=== PATIENT | female | born 1940 | race African-American/Black ===

== ENCOUNTER 2017-03-21 13:40 | Emergency (ER) | payer MEDICARE ==
[~2017-03-21] VITALS: Ht 170.2 cm; Wt 103.0 kg
[~2017-03-21 13:40] MED LIST: (None)10 MG OR; ALENDRONATE70 MG PO; AMOXICILLIN/CL875 MG PO; AMOXICILLIN500 MG PO; ASPIRIN EC81 MG PO; ASPIRIN LOW DOS81 M2 PO; ATENOLOL100 MG OR; ATORVASTATIN CA20 MG PO; BENAZEPRIL20 M1 PO; CALCIUM500 M5 PO; CELEBREX200 MG PO; CEPHALEXIN500 MG PO; CLONIDINE0.2 MG OR; DARVOCET N-100100 - OR; DURAGESIC50 MCG/H1 TD; ENALAPRIL10 MG PO; FLEXERIL10 MG PO; FLEXERIL5 M1; FLUOXETINE10 M2 PO; GABAPENTIN300 MG PO; HYDROCHLOROTH12.5 MG PO; HYDROCHLOROTHIA50 MG PO; HYDROCO/APAP1 T10 PO; LASIX 40 MG40 MG/TAB PO; LIPITOR10 M1 PO; LORTAB 5 OR; MAXZIDE-2537.5 MG/TA PO; MEDDOSEPAK PO; MEDROL4 M1 PO; MELOXICAM7.5 MG PO; METFORMIN500 M1 PO; METOPROL TAR50 MG PO; METOPROLOL TART50 MG PO; MOBIC15 MG PO; MULTI VIT PO; NABUMETONE500 MG PO; NEURONTIN100 MG PO; OXYBUTYNIN5 M1 PO; PEPCID20 MG PO; POT CHLORIDE10 ME5 PO; PRAVACHOL20 MG PO; PREDNISONE20 MG PO; TYLENOL # 31 TA1 PO; TYLENOL # 31 TAB PO; ULTRAM50 M1 PO; VITAMIN B-12500 MCG PO; XANAX XR0.5 MG PO; XANAX0.5 MG PO; ZOLOFT50 MG OR; ZPAK PO
[2017-03-21 15:02] LABS: INFLUENZA A NONE DETECTED (NONE DETECT); INFLUENZA B POSITIVE (NONE DETECT)
[2017-03-21] MEDS ORDERED: TAM75CAP PO (15:04)
[2017-03-21 15:15] VITALS: BP 163/83
== END 2017-03-21 15:15 | disposition home or self-care (01) ==
LOC: ED 13:40
PROVIDERS: Family Medicine
DX: J11.1 Influenza due to unidentified influenza virus with other respiratory manifestations (principal); I10 Essential (primary) hypertension

== ENCOUNTER 2019-03-21 18:18 | Observation (INO) | payer MEDICARE, MEDICAID ==
[~2019-03-21] VITALS: Ht 170.2 cm; Wt 101.0 kg
[~2019-03-21 18:18] MED LIST changes: +ARNUITY EL50 MCG/ACT NAB; +ASPIRIN 81 LOW81 MG PO; +BUPROPION HCL300 MG PO; +CALCIUM 600+D3 PO; +CARDURA XL4 MG PO; +CLONIDINE HYDR0.1 M1 PO; +FUROSEMIDE20 MG PO; +HYDROCODONE/ACE1 TAB PO; +HYZAAR1 TA2 PO; +LIPITOR40 M1 PO; +NORCO1 TA1 PO; +REFRESH OPTIVE OU; +TAM75CAP PO
[2019-03-21 19:30] LABS: HEMATOCRIT 40.9 % (37.0-47.0); HEMOGLOBIN 13.1 g/dl (12.0-16.0); IMMATURE GRANULOCYTES 0.3 % (0.0-5.0); MEAN CORPUSCULAR HGB 29.8 pG CALC (26.0-32.0); NEUT# 4.97 thou/uL (2.00-7.15); RED BLOOD COUNT 4.4 mill/uL (4.20-5.60); RED CELL DISTRI WIDTH 14.5 % (11.5-15.5)
[2019-03-21 19:36] LABS: ALBUMIN 4.1 g/dL (3.2-5.0); ALKALINE PHOSPHATASE 119 u/l (38-126); AMYLASE 101 u/l (30-110); ANION GAP 15 (6-22 (CALC)); BILIRUBIN, TOTAL 1.5 mg/dL (0.0-1.4); BUN 19 mg/dL (8-23); BUN/CREATININE RATIO 15 (12-20 (CALC)); CARBON DIOXIDE 30 mmol/l (22-30); CHLORIDE 96 mmol/l (95-108); CREATININE 1.2 mg/dL (0.5-1.0); ETHYL ALCOHOL 0 mg/dl (0-30); GFR 44 ML/MIN (>=60 (CALC)); GFR FOR AFR.AMER. 53 ML/MIN (>=60 (CALC)); LIPASE 158 u/l (23-300); MAGNESIUM 1.7 mg/dL (1.6-2.3); POTASSIUM 3.6 mmol/l (3.5-5.1); SGOT/AST 27 u/l (9-36); SODIUM 137 mmol/l (137-146); TOTAL PROTEIN 8.3 g/dL (6.3-8.2)
[2019-03-21 19:45] LABS: PROTHROMBIN TIME 10.5 SECONDS (9.0-12.5)
[2019-03-21] MEDS ORDERED: ATENOLOL50 MG PO (21:56)
[2019-03-21] MEDS ORDERED: CYMBALTA60 MG PO (21:57)
[2019-03-21] MEDS ORDERED: PAROXETINE10 MG PO (21:58)
[2019-03-22] VITALS (18 sets, daily range): BP systolic 73–132; BP diastolic 48–76
[2019-03-22 00:42] LABS: COCAINE NEGATIVE (NEGATIVE); METHADONE NEGATIVE (NEGATIVE); TETRAHYDROCANNABIONOL NEGATIVE (NEGATIVE)
[2019-03-22 00:43] LABS: BARBITURATES NEGATIVE (NEGATIVE); OXCYCODONE NEGATIVE (NEGATIVE); TRICYLIC ANTIDEPRESSANTS NEGATIVE (NEGATIVE)
[2019-03-22 00:48] LABS: URINE BILIRUBIN - DIPSTICK NEGATIVE (NEGATIVE); URINE COLOR YELLOW; URINE GLUCOSE - DIPSTICK NEGATIVE (NEGATIVE); URINE KETONE NEGATIVE (NEGATIVE); URINE LEUK ESTERASE MODERATE (NEGATIVE); URINE NITRITE - DIPSTICK NEGATIVE (Negative); URINE PROTEIN - DIPSTICK NEGATIVE (NEG-TRACE); URINE SPECIFIC GRAVITY <=1.005; URINE UROBILINOGEN - DIPSTICK 0.2 E.U./dL (0.2)
[2019-03-22 00:50] LABS: URINE BLOOD DIPSTICK NEGATIVE (NEGATIVE)
[2019-03-22 00:53] LABS: URINE BACTERIA MANY hpf; URINE EPITHELIAL CELLS MODERATE EPI/hpf (0-FEW); URINE WBC 20-50 WBC/hpf (0-5)
[2019-03-22 00:54] LABS: URINE TRICHOMONAS FEW hpf
[2019-03-22 06:39] LABS: HEMOGLOBIN 12.8 g/dl (12.0-16.0); IMMATURE GRANULOCYTES 0.4 % (0.0-5.0); MEAN CELL VOLUME 93.5 fL CALC (80.0-100.0); MEAN CORPUSCULAR HGB 29.9 pG CALC (26.0-32.0); NEUT# 4.23 thou/uL (2.00-7.15); RED BLOOD COUNT 4.28 mill/uL (4.20-5.60); RED CELL DISTRI WIDTH 14.6 % (11.5-15.5)
[2019-03-22 07:00] LABS: ALBUMIN 3.9 g/dL (3.2-5.0); ALKALINE PHOSPHATASE 108 u/l (38-126); ANION GAP 13 (6-22 (CALC)); BILIRUBIN, TOTAL 1.7 mg/dL (0.0-1.4); BUN 17 mg/dL (8-23); BUN/CREATININE RATIO 17 (12-20 (CALC)); CALCULATED LDLCHOLESTEROL 135 mg/dL (62-129 (CALC)); CARBON DIOXIDE 33 mmol/l (22-30); CHLORIDE 96 mmol/l (95-108); CHOLESTEROL HDL RATIO 3.8 (<4.4 (CALC)); GFR 54 ML/MIN (>=60 (CALC)); GFR FOR AFR.AMER. > 60 ML/MIN (>=60 (CALC)); HDL CHOLESTEROL 57 mg/dL (>=40); POTASSIUM 3.7 mmol/l (3.5-5.1); SGOT/AST 25 u/l (9-36); SODIUM 139 mmol/l (137-146); TOTAL PROTEIN 7.9 g/dL (6.3-8.2); TOTAL TRIGLYCERIDES 111 mg/dl (30-149); VLDL CHOLESTROL 22 mg/dl (0-48 (CALC))
[2019-03-22 07:33] LABS: TOTAL CHOLESTEROL 214 mg/dl (0-199)
[2019-03-23 00:21] VITALS: BP 156/63
[2019-03-23 04:47] VITALS: BP 133/75
[2019-03-23 11:11] VITALS: BP 118/75
[2019-03-23] MEDS ORDERED: NEURONTIN100 MG PO (12:49)
[2019-03-23] MEDS ORDERED: KEFLEX500 MG PO (12:49)
[2019-03-28] MEDS ORDERED: HYDROCODONE/ACE1 TAB PO (08:58)
== END 2019-03-23 14:50 | disposition home or self-care (01) ==
LOC: ED 18:18 → ED-I 20:27 → ED 20:40 → ICU 20:41 → MS2 03-22 21:40
PROVIDERS: ADMIT Internal Medicine; ATTEND Internal Medicine
DX: G45.9 Transient cerebral ischemic attack, unspecified (principal); M47.26 Other spondylosis with radiculopathy, lumbar region; S32.010A Wedge compression fracture of first lumbar vertebra, initial encounter for closed fracture; N39.0 Urinary tract infection, site not specified; I10 Essential (primary) hypertension; G62.9 Polyneuropathy, unspecified; F41.9 Anxiety disorder, unspecified; F32.9 Major depressive disorder, single episode, unspecified; M15.9 Polyosteoarthritis, unspecified; X58.XXXA Exposure to other specified factors, initial encounter
CPT/HCPCS: A9579; G0378; Q9967

== ENCOUNTER 2019-12-03 17:06 | Observation (INO) | payer MEDICARE, MEDICAID ==
[~2019-12-03] VITALS: Ht 170.2 cm; Wt 83.9 kg
[~2019-12-03 17:06] MED LIST changes: +ATENOLOL50 MG PO; +CYMBALTA60 MG PO; +KEFLEX500 MG PO; +PAROXETINE10 MG PO
--- NOTE | 2019-12-03 17:06 | NUR ---
PT TO ROOM VIA WC WITH DAUGHTER IN ATTENDACE
--- NOTE | 2019-12-03 18:05 | NUR ---
IV INITIATED AND LABS COLLECTED. PT RESTING IN STRETCHER IN NAD AND DENIES ANY NEEDS AT THIS TIME. PATIENT UPDATED ON PLAN OF CARE AND WAIT TIME.
[2019-12-03 18:21] LABS: HEMATOCRIT 39.9 % (37.0-47.0); HEMOGLOBIN 12.8 g/dl (12.0-16.0); IMMATURE GRANULOCYTES 0.4 % (0.0-5.0); MEAN CELL VOLUME 96.8 fL CALC (80.0-100.0); MEAN CORPUSCULAR HGB 31.1 pG CALC (26.0-32.0); MEAN CORPUSCULAR HGB CONC 32.1 g/dL CAL (32.0-36.0); NEUT# 4.1 thou/uL (2.00-7.15); RED BLOOD COUNT 4.12 mill/uL (4.20-5.60)
--- NOTE | 2019-12-03 18:36 | NUR ---
PATIENT RESTING IN STRETCHER WITH IV FLUIDS INFUSING WITH NO DIFFICULTY. PATIENT DENIES ANY NEEDS AT THIS TIME. DAUGHTER REMAINS AT BEDSIDE.
[2019-12-03 18:38] LABS: ALBUMIN 3.9 g/dL (3.2-5.0); ALKALINE PHOSPHATASE 104 u/l (38-126); ANION GAP 12 (6-22 (CALC)); BUN 12 mg/dL (8-23); BUN/CREATININE RATIO 13 (12-20 (CALC)); CARBON DIOXIDE 31 mmol/l (22-30); CHLORIDE 101 mmol/l (95-108); CREATININE 0.9 mg/dL (0.5-1.0); ETHYL ALCOHOL 0 mg/dl (0-30); GFR > 60 ML/MIN (>=60 (CALC)); GFR FOR AFR.AMER. > 60 ML/MIN (>=60 (CALC)); POTASSIUM 3.1 mmol/l (3.5-5.1); SGOT/AST 43 u/l (9-36); SODIUM 141 mmol/l (137-146); TOTAL PROTEIN 7.6 g/dL (6.3-8.2)
[2019-12-03 18:39] LABS: BILIRUBIN, TOTAL 0.6 mg/dL (0.0-1.4)
[2019-12-03 18:46] LABS: ACT PARTIAL THROMBO TIME 21.8 SECONDS (20.0-32.5); PROTHROMBIN TIME 10.1 SECONDS (9.0-12.5)
--- NOTE | 2019-12-03 18:50 | NUR ---
PATIENT REPORT TO SAMANTHA CASTELLON.
--- NOTE | 2019-12-03 19:15 | NUR ---
DR SETH REQUESTED BIOFIRE COVID SWAB BE DONE DUE TO PENDING OR TOMORROW. PT TOLERATED WITH SOME DISCOMFORT..
--- NOTE | 2019-12-03 19:44 | NUR ---
BED NUMBER RECEIVED [id number]
--- NOTE | 2019-12-03 20:18 | NUR ---
Admission Note Report Given to: SAMANTHA TAVERAS Transported by: X Wheelchair Stretcher Transported with: X Nurse Transporter X Patent IV O2 X Diesel Engine I Pipe Fitter Location: ICU X [facility]
[2019-12-03 20:30] VITALS: BP 137/89
--- NOTE | 2019-12-03 20:30 | NUR ---
PT ARRIVED TO THE MED SURG UNIT VIA WC ACCOMPANIED BY ED NURSE AND PTS DAUGHTER. SHE APPEARS IN STABLE CONDITION AT THIS TIME. V/S ASSESSED AND PT ORIENTED TO ROOM, CALL SYSTEM, LIGHTS, BED AND TV. ASSISTED PT POSITION IN BED FOR COMFORT. POC DISCUSSED AND ADMISSION COMPLETED WITH ASSISTANCE OF DAUGHTER. PT LOC X4, BUT IS SLIGHTLY DROWSY, STATES SHE IS VERY TIRED AND USUALLY IS IN BED BY THIS TIME. NO S/O DISTRESS.
--- NOTE | 2019-12-03 20:57 | NUR ---
PT MEDICATED ORDERS PROVIDE. PT DENIES ANY OTHER NEEDS AT THIS TIME. CALL LIGHT AT SIDE. LIGHTS ARE OUT AND TV ON FOR COMFORT.
[2019-12-04] VITALS (9 sets, daily range): BP systolic 117–136; BP diastolic 73–86
--- NOTE | 2019-12-04 00:30 | NUR ---
LAB IN WITH PT, NO S/O DISTRESS. DENIES ANY NEEDS AT THIS TIME. CALL LIGHT AT SIDE.
[2019-12-04 01:00] LABS: HEMATOCRIT 31.5 % (37.0-47.0); HEMOGLOBIN 10.1 g/dl (12.0-16.0)
--- NOTE | 2019-12-04 02:00 | NUR ---
PT SLEEPING, NO S/O DISTRESS NOTED. CALL LIGHT W/IN REACH.
--- NOTE | 2019-12-04 05:27 | NUR ---
PT SLEEPING, BATTERIES REPLACED IN VARYING EXCEPTIONALITIES TEACHER. NO S/O DISTRESS. PT AWOKE TO MY VOICE, BUT DENIED ANY NEEDS AT THIS TIME.
--- NOTE | 2019-12-04 06:11 | NUR ---
IVF REPLENISHED, LAB IN WITH PT AT THIS TIME. PT DENIES ANY NEEDS. NO DISTRESS NOTED.
[2019-12-04 06:19] LABS: HEMATOCRIT 31.4 % (37.0-47.0)
--- NOTE | 2019-12-04 08:02 | NUR ---
PT. A&O X 3. NS @100CC/HR RAC. SITE ASYMPTOMATIC. NO OAIN OR CONCERNS VOICED. ON TELE SR AT 89. FOR ENDOSCOPY TODAY. NPO AT THIS TIME.
[2019-12-04] MEDS ORDERED: PREVACID30 M1 PO (15:27)
[2019-12-04] MEDS ORDERED: PREVACID15 M1 PO (15:28)
[2019-12-04] MEDS ORDERED: CLARITHROMYCIN500 MG PO (15:28)
[2019-12-04] MEDS ORDERED: AMOXICILLIN500 MG PO (15:30)
--- NOTE | 2019-12-04 16:35 | NUR ---
PT HAS BEEN DISCHARGED TO HOME. PT VERBALIZED UNDERSTANDING OF DC INSTRUCTIONS, WAS TAKEN BY WHEELCHAIR TO VEHICLE. PT LEAVES [facility] IN STABLE CONDITION.
== END 2019-12-04 16:30 | disposition home or self-care (01) ==
LOC: ED 17:06 → ED-I 18:30 → ED 18:44 → MS2 18:45
PROVIDERS: ADMIT Internal Medicine; ATTEND Internal Medicine
PROC: 0DB78ZZ Excision of Stomach, Pylorus, Via Natural or Artificial Opening Endoscopic (ICD-10-PCS; principal; 2019-12-04)
DX: K25.4 Chronic or unspecified gastric ulcer with hemorrhage (principal); D62 Acute posthemorrhagic anemia; K44.9 Diaphragmatic hernia without obstruction or gangrene; K29.51 Unspecified chronic gastritis with bleeding; E87.6 Hypokalemia; F10.10 Alcohol abuse, uncomplicated; I10 Essential (primary) hypertension; F41.9 Anxiety disorder, unspecified; F32.9 Major depressive disorder, single episode, unspecified; M35.3 Polymyalgia rheumatica; M19.90 Unspecified osteoarthritis, unspecified site; K21.9 Gastro-esophageal reflux disease without esophagitis; E78.5 Hyperlipidemia, unspecified; Z80.0 Family history of malignant neoplasm of digestive organs; Z20.828 Contact with and (suspected) exposure to other viral communicable diseases
CPT/HCPCS: G0378; S0164

== ENCOUNTER 2020-01-09 07:21 | Day surgery (SDC) | payer MEDICARE, MEDICAID ==
[~2020-01-09 07:21] MED LIST changes: +CLARITHROMYCIN500 MG PO; +FLONASE AL50 MCG/ACT IN; +GERITOL TONIC PO; +HYDROCO/APAP1 TA9 PO; +PREVACID15 M1 PO; +PREVACID30 M1 PO
[2020-01-09 09:26] VITALS: BP 185/96
== END 2020-01-09 09:38 | disposition home or self-care (01) ==
LOC: ENDO 07:21
PROVIDERS: ATTEND Surgery
PROC: 0DJD8ZZ Inspection of Lower Intestinal Tract, Via Natural or Artificial Opening Endoscopic (ICD-10-PCS; principal; 2020-01-09)
DX: Z12.11 Encounter for screening for malignant neoplasm of colon (principal); K57.30 Diverticulosis of large intestine without perforation or abscess without bleeding; Z80.0 Family history of malignant neoplasm of digestive organs; Z79.899 Other long term (current) drug therapy; Z86.19 Personal history of other infectious and parasitic diseases; Z20.828 Contact with and (suspected) exposure to other viral communicable diseases

== ENCOUNTER 2021-02-24 14:51 | Observation (INO) | payer MEDICARE, MEDICAID ==
[~2021-02-24] VITALS: Ht 170.2 cm; Wt 98.0 kg
--- NOTE | 2021-02-24 15:22 | NUR ---
PATIENT ESCORTED TO ROOM FROM LOBBY VIA WHEELCHAIR. NO ACUTE DISTRESS. VSS. NOTIFIED OF PATIENT STATUS.
--- NOTE | 2021-02-24 15:52 | NUR ---
MD AT BEDSIDE TO DISCUSS RESULTS AND POC
[2021-02-24 15:57] LABS: IMMATURE GRANULOCYTES 0.1 % (0.0-5.0); MEAN CORPUSCULAR HGB 27.7 pG CALC (26.0-32.0); MEAN CORPUSCULAR HGB CONC 30.6 g/dL CAL (32.0-36.0); NEUT# 3.71 thou/uL (2.00-7.15); RED BLOOD COUNT 4.95 mill/uL (4.20-5.60); RED CELL DISTRI WIDTH 16.9 % (11.5-15.5)
[2021-02-24 16:01] LABS: HEMATOCRIT 44.7 % (37.0-47.0); HEMOGLOBIN 13.7 g/dl (12.0-16.0); MEAN CELL VOLUME 90.3 fL CALC (80.0-100.0)
[2021-02-24 16:16] LABS: ALBUMIN 4.1 g/dL (3.2-5.0); BILIRUBIN, TOTAL 0.5 mg/dL (0.0-1.4); CREATININE 1.1 mg/dL (0.5-1.0); TOTAL PROTEIN 8.6 g/dL (6.3-8.2)
[2021-02-24 16:19] LABS: POTASSIUM 3.1 mmol/l (3.5-5.1)
--- NOTE | 2021-02-24 16:34 | NUR ---
MD AT BEDSIDE TO DISCUSS RESULTS AND POC
--- NOTE | 2021-02-24 18:06 | NUR ---
MD AT BEDSIDE TO DISCUSS RESULTS AND POC
--- NOTE | 2021-02-24 18:57 | NUR ---
REPORT GIVEN TO MIKIE SINGH
--- NOTE | 2021-02-24 19:00 | NUR ---
IN TO SEE PT AND REVIEW HOME MEDS. PT REPORTS TAKING ALL REGULAR MEDS AT 0830 TODAY. PT REQUESTS DINNER TRAY-ORDERED. PT DENIES ANY OTHER NEEDS. PT STABLE WITH GRANDDAUGHTER AT THE BEDSIDE.
--- NOTE | 2021-02-24 19:30 | NUR ---
SANDWICH TO PT
--- NOTE | 2021-02-24 19:34 | NUR ---
CALL PLACED TO ICU TO GIVE REPORT-NO ANSWER WILL TRY AGAIN
--- NOTE | 2021-02-24 19:46 | NUR ---
SBAR REPORT GIVEN TO SAMANTHA HURTADO ICU. PT TO GO TO ROOM 4/ICU
--- NOTE | 2021-02-24 19:54 | NUR ---
PT TAKEN TO ICU VIA STRETCHER WITH ZOLL MONITOR IN STABLE CONDITION. PT'S BELONGINGS AND PAPERWORK HANDED OFF TO SAMANTHA KERR.
--- NOTE | 2021-02-24 20:00 | NUR ---
RECEIVED INTO ICU BED 4 FROM ER VIA STRETCHER. PATIETN AMBULATED FROM DOORWAY OF ROOM TO BR WITH STABLE STANCE AND GAIT WITH ASSIST OF A WALKER. PATIENT VOIDED AND ASSISTED INTO BED. PLACED ON AIRPLANE DISPATCHER SHOWING SR. ORIENTED TO SURROUNDINGS. CALL ZAPATA IN REACH.
[2021-02-24 20:15] VITALS: BP 140/86
[2021-02-24 20:30] VITALS: BP 125/74
--- NOTE | 2021-02-24 20:30 | NUR ---
ADMISSION ASSESSMENT COMPLETED. RESP NON-LABORED. O2 SAT UPPER 90'S. BREATH SOUNDS CLEAR. DISCUSSED PLAN OF CARE. DENIES NEEDS AT THIS TIME.
[2021-02-24 20:45] VITALS: BP 102/85
[2021-02-24 21:00] VITALS: BP 118/64
[2021-02-24 22:00] VITALS: BP 119/72
--- NOTE | 2021-02-24 22:00 | NUR ---
O2 SAT DROPS WHEN PATIENT FALLS ASLEEP. O2 APPLIED AT 2 L NC. O2 SAT BACK UP TO 90'S.
[2021-02-25] VITALS (7 sets, daily range): BP systolic 104–133; BP diastolic 64–84
--- NOTE | 2021-02-25 00:05 | NUR ---
RESTIGN WITH EYES CLOSED. RESP NON-LABORED. O2 SAT 98-100%
--- NOTE | 2021-02-25 01:30 | NUR ---
UP TO [facility] [place]IST. DYSPNEIC WITH EXERTION. VOIDS WITHOUT DIFFICULTY.
--- NOTE | 2021-02-25 02:00 | NUR ---
RESTING WITH EYES CLOSED. RESP NON-LABORED AT REST. VSS.
--- NOTE | 2021-02-25 04:10 | NUR ---
ASSEMBLY LEAD PERSON IN TO DRAW AM LAB WORK. PATIENT RESTING WITHOUT C/O ANY PAIN OR DISCOMFORTS. VSS. RESP NON-LABORED AT REST.
--- NOTE | 2021-02-25 06:05 | NUR ---
NO CHANGES TO REPORT. SLEPT WELL. VSS.
[2021-02-25 06:06] LABS: HEMATOCRIT 44.2 % (37.0-47.0); HEMOGLOBIN 13.7 g/dl (12.0-16.0); MEAN CELL VOLUME 90.2 fL CALC (80.0-100.0); RED BLOOD COUNT 4.9 mill/uL (4.20-5.60); RED CELL DISTRI WIDTH 17.1 % (11.5-15.5)
[2021-02-25 06:32] LABS: BUN 23 mg/dL (8-23); BUN/CREATININE RATIO 24 (12-20 (CALC)); CARBON DIOXIDE 30 mmol/l (22-30); CHLORIDE 103 mmol/l (95-108); GFR 53 ML/MIN (>=60 (CALC)); GFR FOR AFR.AMER. > 60 ML/MIN (>=60 (CALC)); HDL CHOLESTEROL 48 mg/dL (>=40); MAGNESIUM 1.9 mg/dL (1.6-2.3); SODIUM 140 mmol/l (137-146); TOTAL TRIGLYCERIDES 144 mg/dl (30-149); VLDL CHOLESTROL 29 mg/dl (0-48 (CALC))
[2021-02-25 06:35] LABS: ANION GAP 11 (6-22 (CALC)); CALCULATED LDLCHOLESTEROL 150 mg/dL (62-129 (CALC)); CHOLESTEROL HDL RATIO 4.7 (<4.4 (CALC)); POTASSIUM 3.9 mmol/l (3.5-5.1); TOTAL CHOLESTEROL 227 mg/dl (0-199)
[2021-02-25] MEDS ORDERED: XARELTO STARTER1 TAB PO (13:07)
--- NOTE | 2021-02-25 14:03 | NUR ---
PT DISCHARGED HOME. PT EDUCATED ON S/S OF BLOOD CLOTS, STROKE, DVTS. EDUCATED ON USE AND SIDE EFFECTS OF XARELTO. PT INDICATED UNDERSTANDING ON PICKING UP PRESCRIPTIONS, DOSING AND 30 DAY TRAIL INFO. TRANSPORTED OUT IN WHEELCHAIR TO .
== END 2021-02-25 14:03 | disposition home or self-care (01) ==
LOC: ED 14:51 → ED-I 17:50 → ED 18:14 → ICU 18:15
PROVIDERS: Family Medicine; ADMIT Hospitalist; ATTEND Hospitalist
DX: I26.99 Other pulmonary embolism without acute cor pulmonale (principal); R73.03 Prediabetes; I11.0 Hypertensive heart disease with heart failure; I50.9 Heart failure, unspecified; E78.5 Hyperlipidemia, unspecified; M35.3 Polymyalgia rheumatica; F41.9 Anxiety disorder, unspecified; F32.A Depression, unspecified; K21.9 Gastro-esophageal reflux disease without esophagitis; M19.90 Unspecified osteoarthritis, unspecified site; F10.10 Alcohol abuse, uncomplicated; E66.9 Obesity, unspecified; Z68.33 Body mass index [BMI] 33.0-33.9, adult; Z20.822 Contact with and (suspected) exposure to COVID-19
CPT/HCPCS: J1644; J1650; Q9967